=== PATIENT | female | born 1990 | race Caucasian/White ===

== ENCOUNTER → 2019-02-20 | Outpatient (CLI) | payer OTHER ==
[2019-02-22 01:07] LABS: CHLAMYDIA TRACHOMATIS, NAA Negative (Negative); HPV 16 Negative (Negative); HPV 18 Negative (Negative); HPV OTHER HR TYPES Negative (Negative); NEISSERIA GONORRHOEAE, NAA Negative (Negative)
== END | disposition home or self-care (01) ==
LOC: LAB 13:12 → LAB SHORT 13:12
PROVIDERS: Advanced Practice Midwife
DX: Z36.89 Encounter for other specified antenatal screening (principal)
CPT/HCPCS: 87491; 87591; 87624; G0123

== ENCOUNTER → 2019-08-05 | Outpatient (CLI) | payer OTHER | END | disposition home or self-care (01) | LOC: LAB 09:33 → LAB SHORT 09:33 | DX: Z34.80 Encounter for supervision of other normal pregnancy, unspecified trimester (principal) | CPT/HCPCS: 87081; 87653 ==

== ENCOUNTER 2019-08-27 04:32 | Inpatient (IN) | payer OTHER ==
[~2019-08-27] VITALS: Ht 162.6 cm; Wt 83.1 kg
[2019-08-27] MEDS ORDERED: PRENATAL TABLE1 EAC2 PO (05:02)
[2019-08-27] MEDS ORDERED: FERSU300 PO (05:03)
[2019-08-27] MEDS ORDERED: Zantac150 MG (05:03)
[2019-08-27 05:06] LABS: BASOPHILS ABSOLUTE AUTO 0.02 K/mm3 (0.00-0.23); BASOPHILS PERCENT AUTO 0 % (0-2); EOSINOPHILS ABSOLUTE AUTO 0.15 K/mm3 (0.00-0.68); EOSINOPHILS PERCENT AUTO 2 % (0-6); Hematocrit 34.1 % (33.0-51.0); Hemoglobin 11.1 g/dL (11.5-16.0); IMMATURE GRAN ABSOLUTE AUTO 0.02 K/mm3 (0.00-0.10); IMMATURE GRAN PERCENT AUTO 0 % (0-1); LYMPHOCYTES ABSOLUTE AUTO 1.98 K/mm3 (0.84-5.20); LYMPHOCYTES PERCENT AUTO 23 % (21-46); MONOCYTES ABSOLUTE AUTO 0.51 K/mm3 (0.16-1.47); MONOCYTES PERCENT AUTO 6 % (4-13); Mean Corpuscular HGB 28.5 pg (26.0-34.0); Mean Corpuscular HGB Conc 32.6 g/dL (31.5-36.5); Mean Corpuscular Volume 88 fL (80-100); Mean Platelet Volume 12.4 fL (9.1-12.4); NEUTROPHILS ABSOLUTE AUTO 6.08 K/mm3 (1.96-9.15); NEUTROPHILS PERCENT AUTO 70 % (41-73); Platelet Count 110 K/mm3 (150-400); RDW Coefficient Variation 14.4 % (11.7-14.2); RDW Standard Deviation 45.9 fL (35.1-46.3); Red Blood Cell Count 3.89 M/mm3 (3.80-5.20); White Blood Cell Count 8.76 K/mm3 (4.00-11.30)
[2019-08-28 05:42] LABS: Hematocrit 31.4 % (33.0-51.0); Mean Corpuscular HGB 28.4 pg (26.0-34.0); Mean Corpuscular HGB Conc 31.8 g/dL (31.5-36.5); Mean Corpuscular Volume 89 fL (80-100); Platelet Count 101 K/mm3 (150-400); RDW Coefficient Variation 14.6 % (11.7-14.2); RDW Standard Deviation 47.3 fL (35.1-46.3); Red Blood Cell Count 3.52 M/mm3 (3.80-5.20); White Blood Cell Count 8.73 K/mm3 (4.00-11.30)
--- NOTE | 2019-08-28 09:46 | NUR ---
CONSULT. MOM IS EXPERIENCED WITH BF AND HANDLES BABY WELL. HAS BEEN TONGUE SUCKING DURING THE NIGHT. IS CURRENTLY TRYING TO LATCH. INSTRUCT/DEMO POSITIONING TO HELP OBTAIN A DEEPER ASYMETRIC LATCH AND THEN FURTHER WIDEN THE LATCH UNTIL COMFORTABLE. BABY IS SOMEWHAT RESISTANT TO HAVING THE LATCH WIDENED MUCH BUT DOES FLARE HER LOWER LIP OUTWARD. INSTRUCT IN CHANGES TO EXPECT DURING THE FIRST WEEK AND REFERRED TO BF BROCHURE AND BF BOOK FOR PHOTOS AND INFORMATION. QUESIONS ANSWERED.
--- NOTE | 2019-08-28 16:00 | NUR ---
REPORT GIVEN TO PAULA CASTILLO & PAULA REINA.
--- NOTE | 2019-08-28 17:16 | NUR ---
DISCHARGE TEACHING COMPLETED WITH THE PATIENT AND HER . PATIENT VERBALIZES UNDERSTANDING AND HAS NO FURTHER QUESTIONS AT THIS TIME
--- NOTE | 2019-08-28 17:35 | NUR ---
DISCHARGE PATIENT DISCHARGED TO HOME IN [place]
== END 2019-08-28 17:40 | disposition home or self-care (01) | DRG 806 ==
LOC: OBS 04:32 → BC 04:33 → OBS 04:37 → BC 04:39
PROVIDERS: ADMIT Advanced Practice Midwife
PROC: 10E0XZZ Delivery of Products of Conception, External Approach (ICD-10-PCS; principal; 2019-08-27)
PROC: 10907ZC Drainage of Amniotic Fluid, Therapeutic from Products of Conception, Via Natural or Artificial Opening (ICD-10-PCS; 2019-08-27)
PROC: 3E033VJ Introduction of Other Hormone into Peripheral Vein, Percutaneous Approach (ICD-10-PCS; 2019-08-27)
PROC: 0UQG7ZZ Repair Vagina, Via Natural or Artificial Opening (ICD-10-PCS; 2019-08-27)
PROC: 3E0R3BZ Introduction of Anesthetic Agent into Spinal Canal, Percutaneous Approach (ICD-10-PCS; 2019-08-27)
DX: O43.123 Velamentous insertion of umbilical cord, third trimester (principal); O71.4 Obstetric high vaginal laceration alone; Z37.0 Single live birth; O76 Abnormality in fetal heart rate and rhythm complicating labor and delivery; Z3A.39 39 weeks gestation of pregnancy; O40.3XX0 Polyhydramnios, third trimester, not applicable or unspecified; O99.02 Anemia complicating childbirth; D64.9 Anemia, unspecified; O69.81X0 Labor and delivery complicated by cord around neck, without compression, not applicable or unspecified
CPT/HCPCS: 36415; 51702; 85025; 85027; 88307; J1885; J2001; J2405; J2590; J3010; J7120

== ENCOUNTER 2025-09-25 01:02 | Day surgery (SDC) | payer OTHER ==
[~2025-09-25 01:02] MED LIST: FERSU300 PO; PRENATAL TABLE1 EAC2 PO; Sod Ferric Gluc Complx/Sucrose 125 MG in NS 100 ML IV SCH; Zantac150 MG
[2025-09-25 07:27] VITALS: BP 130/82
== END 2025-09-25 08:35 | disposition home or self-care (01) ==
LOC: ATC 01:02
DX: D50.9 Iron deficiency anemia, unspecified (principal); Z91.013 Allergy to seafood
CPT/HCPCS: 96365; J2916

== ENCOUNTER 2025-09-30 05:12 | Day surgery (SDC) | payer OTHER ==
[~2025-09-30 05:12] MED LIST changes: -Sod Ferric Gluc Complx/Sucrose 125 MG in NS 100 ML IV SCH
[2025-09-30] MEDS ORDERED: Sod Ferric Gluc Complx/Sucrose 125 MG in NS 100 ML IV SCH (07:10)
[2025-09-30 08:03] VITALS: BP 125/86
== END 2025-09-30 09:10 | disposition home or self-care (01) ==
LOC: ATC 05:12
DX: D50.9 Iron deficiency anemia, unspecified (principal); G47.10 Hypersomnia, unspecified; J34.2 Deviated nasal septum; Z91.013 Allergy to seafood
CPT/HCPCS: 96365; J2916